=== PATIENT | male | born 1955 | race Caucasian/White ===

== ENCOUNTER 2016-11-18 18:14 | Emergency (ER) | payer BC ==
[~2016-11-18] VITALS: Ht 172.7 cm; Wt 80.9 kg
[2016-11-18 18:16] VITALS: TEMP 98.1
[2016-11-18] MEDS ORDERED: PRILOSEC 20MG20 MG PO (18:19)
[2016-11-18] MEDS ORDERED: MEVACOR40 MG PO (18:19)
[2016-11-18] MEDS ORDERED: EFFEXOR 75M75 MG/TAB PO (18:20)
[2016-11-18] MEDS ORDERED: LAMICTAL200 MG PO (18:20)
[2016-11-18 19:02] LABS: HEMATOCRIT 38.2 % (42.0-52.0); HEMOGLOBIN 12.8 g/dl (13.5-18.0); MEAN CELL VOLUME 92 fl (80.0-100.0); MEAN CORPUSCULAR HEMOGLOBIN 31 pg (27.0-31.0); MEAN CORPUSCULAR HGB CONC 34 g/dl (33.0-37.0); MEAN PLATELET VOLUME 9.4 fl (7.4-10.4); PLATELET COUNT 121 K/mm3 (130-400); RED BLOOD COUNT 4.14 M/mm3 (4.20-5.60); REDCELL DISTRIBUTION WIDTH-CV 14.9 % (11.5-14.5); WHITE BLOOD COUNT 4.9 K/mm3 (4.8-10.8)
[2016-11-18 19:03] LABS: ADD PATHOLOGY DIFF REVIEW NO
[2016-11-18 19:19] LABS: BAND 16 % (0-10); EOSINOPHIL 1 % (0-4); NEUTROPHILS 77 % (42.0-75.2); PLATELET ESTIMATE NORMAL (NORMAL); TOTAL CELLS COUNTED 100
[2016-11-18 19:21] LABS: ADJUSTED CALCIUM 9.4 mg/dL (8.4-10.2); ALBUMIN 4.9 gm/dL (3.5-5.0); BILIRUBIN,TOTAL 0.8 mg/dL (0.0-1.0); C-REACTIVE PROTEIN 1.9 mg/dL (0.0-0.9); CALCIUM 10.1 mg/dL (8.4-10.2); CREATININE, serum 0.78 mg/dL (0.66-1.25); POTASSIUM 3.9 mmol/L (3.4-5.0); TOTAL PROTEIN 7.6 gm/dL (6.4-8.2)
[2016-11-18 20:00] VITALS: BP 157/91
[2016-11-18 20:11] LABS: PH 5 (5-8); SQUAMOUS EPITHELIAL None Seen /hpf; URINE APPEARANCE Clear; URINE BACTERIA None Seen /hpf; URINE BILIRUBIN Negative (NEGATIVE); URINE BLOOD Negative (NEGATIVE); URINE COLOR Yellow; URINE GLUCOSE Negative (NEGATIVE); URINE KETONE 2+ (NEGATIVE); URINE RBC 0-2 /hpf; URINE UROBILINOGEN Negative (NEGATIVE); URINE WBC 0-2 /hpf
[2016-11-18 21:31] VITALS: PULSE 102
[2016-11-19] MEDS ORDERED: ULTRAM 50MG TAB50 MG PO (04:34)
[2016-11-19] MEDS ORDERED: ZOFRAN8 MG PO (04:34)
[2016-11-19] MEDS ORDERED: PERCOCET 325 MG1 TA2 PO (04:34)
== END 2016-11-18 21:31 | disposition home or self-care (01) ==
LOC: COL.ER 18:14
PROVIDERS: Emergency Medicine
DX: R10.84 Generalized abdominal pain (principal); Z85.72 Personal history of non-Hodgkin lymphomas
CPT/HCPCS: J1170; J2405; J7030; Q9967

== ENCOUNTER 2016-11-19 02:35 | Emergency (ER) | payer BC ==
[~2016-11-19] VITALS: Ht 172.7 cm; Wt 80.9 kg
[~2016-11-19 02:35] MED LIST: EFFEXOR 75M75 MG/TAB PO; LAMICTAL200 MG PO; MEVACOR40 MG PO; PRILOSEC 20MG20 MG PO
[2016-11-19 02:40] VITALS: TEMP 97.5
[2016-11-19 03:09] LABS: EOS % 0.2 % (0-4.0); GRAN # 4.7 (1.4-6.5); GRAN % 84.3 % (42.2-75.2); LYMPH # 0.5 (1.2-3.4); LYMPH % 8.7 % (20.0-51.0); MEAN CELL VOLUME 91 fl (80.0-100.0); MEAN CORPUSCULAR HGB CONC 34 g/dl (33.0-37.0); MEAN PLATELET VOLUME 9.2 fl (7.4-10.4); MONO # 0.4 (0.1-0.6); MONO % 6.4 % (1.7-9.3); PLATELET COUNT 101 K/mm3 (130-400); RED BLOOD COUNT 3.84 M/mm3 (4.20-5.60); WHITE BLOOD COUNT 5.5 K/mm3 (4.8-10.8)
[2016-11-19 03:13] LABS: HEMATOCRIT 34.9 % (42.0-52.0); HEMOGLOBIN 11.7 g/dl (13.5-18.0); MEAN CORPUSCULAR HEMOGLOBIN 30 pg (27.0-31.0)
[2016-11-19 03:24] LABS: ADJUSTED CALCIUM 8.8 mg/dL (8.4-10.2); ALANINE AMINOTRANSFERASE 47 U/L (21-72); ALBUMIN 4.6 gm/dL (3.5-5.0); ALKALINE PHOSPHATASE 60 U/L (50-136); ANION GAP 14 mmol/L (7-16); BILIRUBIN,TOTAL 0.7 mg/dL (0.0-1.0); BLOOD UREA NITROGEN 13 mg/dL (9-20); C-REACTIVE PROTEIN 2.3 mg/dL (0.0-0.9); CALCIUM 9.3 mg/dL (8.4-10.2); CARBON DIOXIDE 25 mmol/L (22-30); CHLORIDE 99 mmol/L (98-107); GLUCOSE 130 mg/dL (74-106); LIPASE 37 U/L (23-300); POTASSIUM 3.5 mmol/L (3.4-5.0); SODIUM 138 mmol/L (137-145)
[2016-11-19 03:33] LABS: B-TYPE NATRIURETIC PEPTIDE 566 pg/mL (0-125)
[2016-11-19 03:34] LABS: TROPONIN-I < 0.012 ng/mL (0.000-0.034)
[2016-11-19 03:35] LABS: ERYTHROCYTE SEDIMENTATION RATE 23 mm/hr (0-30)
[2016-11-19] MEDS ORDERED: ZOFRAN8 MG PO (04:34)
[2016-11-19] MEDS ORDERED: PERCOCET 325 MG1 TA2 PO (04:34)
[2016-11-19] MEDS ORDERED: ULTRAM 50MG TAB50 MG PO (04:34)
[2016-11-19 04:38] VITALS: BP 127/62; PULSE 66
== END 2016-11-19 04:49 | disposition home or self-care (01) ==
LOC: COL.ER 02:35
PROVIDERS: Emergency Medicine
DX: R07.9 Chest pain, unspecified (principal); R11.2 Nausea with vomiting, unspecified; R07.1 Chest pain on breathing; K21.9 Gastro-esophageal reflux disease without esophagitis; F32.9 Major depressive disorder, single episode, unspecified; E78.5 Hyperlipidemia, unspecified; C85.90 Non-Hodgkin lymphoma, unspecified, unspecified site; Z94.84 Stem cells transplant status
CPT/HCPCS: J1170; J1885; J2405; J7030; Q9967